=== PATIENT | female | born 1940 ===

== ENCOUNTER 2017-10-06 09:51 | Inpatient (IN) | payer OTHER ==
[~2017-10-06] VITALS: Ht 157.5 cm; Wt 59.0 kg
[2017-10-06] MEDS ORDERED: NAMENDA10 MG (10:32)
[2017-10-06] MEDS ORDERED: VASOTEC10 MG (10:32)
[2017-10-06] MEDS ORDERED: ZOCOR20 MG (10:33)
[2017-10-06] MEDS ORDERED: RISPERDAL2 MG (10:33)
[2017-10-06] MEDS ORDERED: AMBIEN10 MG (10:34)
[2017-10-06] MEDS ORDERED: ZOLOFT50 MG (10:34)
[2017-10-06] MEDS ORDERED: ARICEPT10 MG (10:35)
[2017-10-06] MEDS ORDERED: BENADRYL50 MG (10:35)
[2017-10-06] MEDS ORDERED: CELEBREX200MG (10:37)
[2017-10-12] MEDS ORDERED: SIMVASTATIN40 MG PO (10:50)
[2017-10-12] MEDS ORDERED: LEVAQUIN750 MG PO (10:50)
[2017-10-12] MEDS ORDERED: ENALAPRIL MALEAT5 MG PO (10:50)
[2017-10-12] MEDS ORDERED: DOXYCYCLINE HY100 M2 PO (10:50)
== END 2017-10-12 14:23 | disposition home health service (06) | DRG 592 ==
LOC: ER 09:51 → MEDI 13:58 → SEC-K 13:58 → MEDI 19:37
PROC: CP1Z1ZZ Planar Nuclear Medicine Imaging of Musculoskeletal System, All using Technetium 99m (Tc-99m) (ICD-10-PCS; principal; 2017-10-07)
DX: L89.153 Pressure ulcer of sacral region, stage 3 (principal); E46 Unspecified protein-calorie malnutrition; B95.61 Methicillin susceptible Staphylococcus aureus infection as the cause of diseases classified elsewhere; Z74.01 Bed confinement status; I10 Essential (primary) hypertension; E87.6 Hypokalemia; E88.09 Other disorders of plasma-protein metabolism, not elsewhere classified; F03.90 Unspecified dementia, unspecified severity, without behavioral disturbance, psychotic disturbance, mood disturbance, and anxiety